=== PATIENT | male | born 1995 | race Two or more races ===

== ENCOUNTER 2022-01-09 13:00 | Inpatient (IN) | payer BC, OTHER ==
[~2022-01-09] VITALS: Ht 190.5 cm; Wt 106.6 kg
[2022-01-09] MEDS ORDERED: DOCUSATE SOD 100 MG CAP PO PRN (13:30)
[2022-01-09] MEDS ORDERED: LORazepam 0.5 MG TAB PO PRN (13:30)
[2022-01-09] MEDS ORDERED: HYDROcodone-ACET 5/325MG TAB PO PRN (13:30)
[2022-01-09] MEDS ORDERED: ONDANSETRON HCL 4 MG/2 ML VIAL IV PRN (13:30)
[2022-01-09] MEDS ORDERED: NITROGLYCERIN 0.4 MG SL TAB SL PRN (13:30)
[2022-01-09] MEDS ORDERED: MORPHINE SULFATE INJ 2 MG/ml SYRG IV PRN ×2 (13:30)
[2022-01-09] MEDS ORDERED: ACETAMINOPHEN 325 MG TAB PO PRN (13:30)
[2022-01-09] MEDS: SODIUM CHLOR 0.9% PF (SALINE LOCK) 10ML VIAL/SYR IV SCH ×2 (14:00→22:11)
[2022-01-09 14:37] LABS: Basophils # (auto) 0 10 ^3/uL (0-0.2); Basophils % (auto) 0.4 % (0.0-2.0); Eosinophils # (auto) 0 10 ^3/uL (0-0.8); Eosinophils % (auto) 0.6 % (0.0-7.0); Hematocrit 47.1 % (41.0-53.0); Hemoglobin 16.3 g/dL (13.5-17.5); Lymphocytes # (auto) 1.6 10 ^3/uL (0.4-5.4); Lymphocytes % (auto) 21.9 % (10.0-50.0); Mean Corpuscular Hemoglobin 31.2 pg (28.0-32.0); Mean Corpuscular Hgb Conc. 34.7 g/dL (32.0-36.0); Mean Corpuscular Volume 89.9 fL (80.0-100.0); Monocytes # (auto) 0.5 10 ^3/uL (0-1.3); Monocytes % (auto) 6.4 % (0.0-12.0); Neutrophils # (auto) 5.3 10 ^3/uL (1.6-8.6); Neutrophils % (auto) 70.7 % (37.0-80.0); Nucleated Red Blood Cells % 0.1 %; Red Blood Cells 5.24 10^6/uL (4.5-5.90); Red Cell Distribution Width 12.8 % (11.8-14.3); White Blood Cell 7.5 10^3/uL (4.4-10.8)
[2022-01-09 14:48] LABS: Albumin 4.4 g/dL (3.4-5.0); BUN/Creatinine Ratio 15.5; Calcium 8.5 mg/dL (8.5-10.1); Magnesium 1.9 mg/dL (1.6-2.6); Potassium 3.6 mmol/L (3.5-5.1)
[2022-01-09 14:50] LABS: Bilirubin, Total 0.8 mg/dL (0.2-1.0); Total Protein 7.1 g/dL (6.4-8.2)
[2022-01-09 15:03] LABS: INR 0.98 (0.9-1.15); Partial Thromboplastin Time 22.3 sec (24.6-33.4)
[2022-01-09 16:28] LABS: Urine Bacteria NONE SEEN /hpf (None Seen); Urine Blood Negative /uL (Negative); Urine Specific Gravity 1.016 (1.001-1.035); Urine WBC <1 /hpf (0 - 3)
[2022-01-09 16:50] VITALS: BP 151/79
[2022-01-09 16:53] LABS: Alcohol, Urine < 3.0 mg/dL (0-10); Amphetamine Screen, Urine NEGATIVE (NEGATIVE); Barbiturate Scree,Urine NEGATIVE (NEGATIVE); Benzodiazephine Screen, Urine NEGATIVE (NEGATIVE); Cannabinoid Screen, Urine NEGATIVE (NEGATIVE); Cocaine Screen, Urine NEGATIVE (NEGATIVE); Opiate Scree,Urine NEGATIVE (NEGATIVE); Phencyclidine Screen, Urine NEGATIVE (NEGATIVE)
[2022-01-09 17:00] VITALS: BP 133/80
[2022-01-09 21:30] VITALS: BP 136/73
[2022-01-10] VITALS (10 sets, daily range): BP systolic 121–155; BP diastolic 68–103
[2022-01-10] MEDS: SODIUM CHLOR 0.9% PF (SALINE LOCK) 10ML VIAL/SYR IV SCH ×3 (05:58→22:09)
[2022-01-10] MEDS: PANTOPRAZOLE 40 MG TAB PO SCH (09:18)
[2022-01-10] MEDS: SODIUM CHLORIDE 0.9% 1,000 ML IV SCH (10:45)
[2022-01-10] MEDS ORDERED: LIDOCAINE 2%HCL (LOCAL ANESTH.) INJ 20ML MDV ONE (14:26)
[2022-01-10] MEDS ORDERED: IOHEXOL 350 MG/ML 100ML IJ ONE (14:27)
[2022-01-10] MEDS ORDERED: MIDAZOLAM HCL 2MG/2ML 2ml VIAL (1mg/ml) ONE (14:27)
[2022-01-10] MEDS ORDERED: ANGIOMAX 250 MG VIAL IV ONE (14:28)
[2022-01-10] MEDS ORDERED: fentaNYL CITRATE 5 ML ONE (14:28)
[2022-01-10] MEDS ORDERED: SODIUM CHL 0.9% 0 ML ONE (14:28)
[2022-01-10] MEDS ORDERED: HEPARIN SODIUM (PORCINE) 5000 UNITS/ML 1ML VIAL ONE (14:38)
[2022-01-11] MEDS: SODIUM CHLORIDE 0.9% 1,000 ML IV SCH (00:05)
[2022-01-11 05:03] VITALS: BP 125/70
[2022-01-11] MEDS: SODIUM CHLOR 0.9% PF (SALINE LOCK) 10ML VIAL/SYR IV SCH (06:37)
[2022-01-11 07:01] LABS: Albumin 3.8 g/dL (3.4-5.0); Bilirubin, Direct 0.2 mg/dL (0-0.2)
[2022-01-11 07:04] LABS: Bilirubin, Total 0.6 mg/dL (0.2-1.0); Total Protein 6.6 g/dL (6.4-8.2)
[2022-01-11 09:00] VITALS: BP 136/74
[2022-01-11] MEDS: PANTOPRAZOLE 40 MG TAB PO SCH (09:28)
[2022-01-11] MEDS ORDERED: SACUBITRIL-VALSARTAN 24mg/26mg TAB PO SCH (10:00)
[2022-01-11] MEDS ORDERED: SACU1TAB PO (10:09)
[2022-01-11 11:21] VITALS: BP 136/74
[2022-01-11 12:50] VITALS: BP 148/103
[2022-01-13 16:29] LABS: Hepatitis A Ab IgM Negative; Hepatitis B Core IgM Negative; Hepatitis C Antibody Negative (Negative)
== END 2022-01-11 13:00 | disposition home or self-care (01) | DRG 287 ==
LOC: TELE-CENTR 13:00
PROVIDERS: ADMIT Internal Medicine; ATTEND Internal Medicine
PROC: 4A023N7 Measurement of Cardiac Sampling and Pressure, Left Heart, Percutaneous Approach (ICD-10-PCS; principal; 2022-01-10)
PROC: B2111ZZ Fluoroscopy of Multiple Coronary Arteries using Low Osmolar Contrast (ICD-10-PCS; 2022-01-10)
PROC: B2151ZZ Fluoroscopy of Left Heart using Low Osmolar Contrast (ICD-10-PCS; 2022-01-10)
DX: I50.21 Acute systolic (congestive) heart failure (principal); E66.9 Obesity, unspecified; Z20.822 Contact with and (suspected) exposure to COVID-19; R07.89 Other chest pain; R79.89 Other specified abnormal findings of blood chemistry; Z86.16 Personal history of COVID-19; Z68.29 Body mass index [BMI] 29.0-29.9, adult
CPT/HCPCS: 36415; 71045; 76705; 80053; 80074; 80076; 80307; 81001; 82306; 83735; 83880; 84439; 84443; 84484; 85025; 85610; 85730; 87081; 93306; 93458; 99152; G0378; J2250